=== PATIENT | male | born 1955 | race Caucasian/White ===

== ENCOUNTER → 2016-03-16 | Day surgery (SDC) | payer MEDICARE ==
[~2016-03-16] MED LIST: AMLO5TAB PO; AMLODIPINE BES10 MG PO; ASPIRIN 325MG325 MG PO; BENAZEPRIL HYDR20 MG PO; CRESTOR5 MG PO; D-31000 IU PO; LASIX20 MG PO; LOSARTAN POTASS1 TA1 PO; LOVASTATIN40 MG PO; MASON NATURAL1000 IU PO; METFORMIN HCL1000 MG PO; METOPROLOL SUCC50 M1 PO; NEXIUM40 MG PO; NITROGLYCERIN0.4 MG SL; PAROXETINE20 MG PO; PLAVIX75 MG PO; PREDNISONE 20MG20 MG PO; ZETIA10 MG PO; ZITHROMAX Z-PA250 M2 PO
== END ==
LOC: SDC 06:22
DX: Z53.9 Procedure and treatment not carried out, unspecified reason (principal)